=== PATIENT | female | born 1980 | race Caucasian/White ===

== ENCOUNTER 2024-05-28 10:29 | Emergency (ER) | payer OTHER ==
[~2024-05-28] VITALS: Ht 157.5 cm; Wt 67.0 kg
[2024-05-28 10:45] LABS: BASOPHILS 0.4 % (0-2); EOSINOPHILS 1.5 % (0-6); HEMATOCRIT 36.4 % (35.0-50.0); HEMOGLOBIN 12.9 g/dL (12.0-18.0); LYMPHOCYTES 47.5 % (24-44); MCH 30.9 (27-36); MCHC 35.3 g/dl (30-36); MCV 87.6 fl (81-99); MONOCYTES 9.6 % (0-12); PLATELET COUNT 264 K/uL (140-440); RBC 4.16 M/ul (4.3-5.7); RDW 13.2 (10.5-15.0)
[2024-05-28 11:02] LABS: ALBUMIN/GLOBULIN RATIO 1.33 (1.1-2.4); ALCOHOL, MEDICAL <3 ng/dL (<3); ALKALINE PHOSPHATASE 54 U/L (46-116); ALT (SGPT) 28 U/L (14-59); ANION GAP 14.2 (7-21); AST (SGOT) 19 U/L (15-37); BILIRUBIN, TOTAL 1.5 ng/dL (0.2-1.0); BUN/CREATININE RATIO 9.87 (6.0-28.6); CALCIUM 8.9 mg/dL (8.5-10.1); CARBON DIOXIDE 26 mmol/L (21-32); CHLORIDE 101 mmol/L (98-107); CREATININE, SERUM 0.81 mg/dL (0.55-1.02); GLOMERULAR FILTRATION RATE,EST 91 mL/min (>60); POTASSIUM 3.2 mmol/L (3.5-5.1); UREA NITROGEN 8 mg/dL (7-18)
[2024-05-28 11:14] LABS: ABO A; ANTIBODY SCREEN NEGATIVE; RH POSITIVE
[2024-05-28] MEDS ORDERED: CEPHALEXIN500 MG PO (12:36)
[2024-05-28] MEDS ORDERED: IBUPROFEN 600 MG TAB PO ONE (13:00)
[2024-05-28 13:10] VITALS: BP 117/75
== END 2024-05-28 13:10 | disposition home or self-care (01) ==
LOC: ED 10:29
PROVIDERS: Emergency Medicine
DX: S01.01XA Laceration without foreign body of scalp, initial encounter (principal); S50.311A Abrasion of right elbow, initial encounter; S50.312A Abrasion of left elbow, initial encounter; S60.812A Abrasion of left wrist, initial encounter; S70.311A Abrasion, right thigh, initial encounter; D18.03 Hemangioma of intra-abdominal structures; Y93.K9 Activity, other involving animal care
CPT/HCPCS: 36415; 70450; 71260; 72125; 73110; 73130; 74177; 80053; 80307; 83690; 84702; 85025; 86850; 86900; 86901; A9270; G0480; Q9967

== ENCOUNTER 2025-08-16 20:37 | Emergency (ER) | payer OTHER ==
[~2025-08-16] VITALS: Ht 157.5 cm; Wt 65.0 kg
[~2025-08-16 20:37] MED LIST: CEPHALEXIN500 MG PO
[2025-08-17] MEDS ORDERED: AMOXICILLIN/CLAVULANATE K 875 MG HOME.PACK PO ONE (00:45)
[2025-08-17] MEDS ORDERED: AMOX TR-K CLV1 EAC1 PO (01:17)
[2025-08-17 01:23] VITALS: BP 115/71
== END 2025-08-17 01:25 | disposition home or self-care (01) ==
LOC: ED 20:37
DX: S61.451A Open bite of right hand, initial encounter (principal); S61.551A Open bite of right wrist, initial encounter; S81.852A Open bite, left lower leg, initial encounter; W54.0XXA Bitten by dog, initial encounter
CPT/HCPCS: 99283